=== PATIENT | male | born 1990 | race African-American/Black ===

== ENCOUNTER 2020-12-11 17:57 | Inpatient (IN) | payer MEDICARE, OTHER ==
[~2020-12-11] VITALS: Ht 177.8 cm; Wt 113.4 kg
[~2020-12-11 17:57] MED LIST: TRAM7.5P2
[2020-12-11 22:21] LABS: CLARITY URINE CLEAR (CLEAR); COLOR URINE YELLOW (YELLOW); KETONES URINE NEGATIVE (NEGATIVE); LEUKOCYTE ESTERASE URINE 1+ (NEGATIVE); NITRITE URINE NEGATIVE (NEGATIVE); OCCULT BLOOD URINE NEGATIVE (NEGATIVE); PH URINE 5.5 (4.5-8.0); PROTEIN URINE NEGATIVE (NEGATIVE); SPECIFIC GRAVITY URINE 1.028 (1.005-1.030)
[2020-12-11 22:50] LABS: BASOPHILS % 0.8 % (0.0-2.0); EOSINOPHILS % 1.6 % (0.0-5.0); HEMATOCRIT. 44.1 % (42.0-52.0); HEMOGLOBIN. 14.5 g/dL (14.0-18.0); LYMPHOCYTES % 33.8 % (20.0-50.0); MEAN CORPUSCULAR HEMOGLOBIN 24.9 pg (28.0-32.0); MEAN CORPUSCULAR VOLUME 75.8 fL (80.0-94.0); MEAN PLATELET VOLUME 7.4 fl (7.4-10.4); MONOCYTES % 7.5 % (2.0-8.0); NEUTROPHILS % 56.3 % (40.0-76.0); PLATELET 348 x1000/uL (130-400); RED BLOOD CELL COUNT 5.81 mill/uL (4.7-6.1)
[2020-12-11 22:58] LABS: PARTIAL THROMBOPLASTIN TIME 31.2 sec (23.4-31.0); PROTHROMBIN TIME 10.3 sec (9.6-11.0)
[2020-12-11 23:00] LABS: CHLORIDE 104 mEq/L (98-107)
[2020-12-11] MEDS ORDERED: HYDROCODONE/ACETAMINOPHEN 5/325MG TABLET PO ONE (23:30)
[2020-12-12] MEDS ORDERED: MAGNESIUM/ALUMINUM HYDROXIDE/SIMETHICONE 30ML UDC PO STA (00:25)
[2020-12-12] MEDS ORDERED: IOHEXOL-300 100 ML BOTTLE ONE (01:31)
[2020-12-12] MEDS ORDERED: MORPHINE SULFATE 2 MG/ML CPJ (NOT FOR IM USE) IV ONE (02:00)
[2020-12-12] MEDS ORDERED: SODIUM CHLORIDE 0.9% 1,000 ML IV ONE (02:00)
[2020-12-12] MEDS ORDERED: ONDANSETRON HCL 4MG/2ML INJ IV ONE (02:00)
[2020-12-12] MEDS ORDERED: METOCLOPRAMIDE HCL 10MG/2ML VIAL IV ONE (03:30)
[2020-12-12 12:00] VITALS: BP 104/52
[2020-12-12] MEDS ORDERED: CLONIDINE 0.1MG TABLET PO PRN (12:00)
[2020-12-12] MEDS ORDERED: DOCUSATE SODIUM 100MG CAPSULE PO PRN (12:00)
[2020-12-12] MEDS ORDERED: IPRATROPIUM/ALBUTEROL 0.5-3(2.5)MG/3ML NEB HHN PRN (12:00)
[2020-12-12] MEDS ORDERED: MAGNESIUM/ALUMINUM HYDROXIDE/SIMETHICONE 30ML UDC PO PRN (12:00)
[2020-12-12] MEDS ORDERED: ACETAMINOPHEN 325MG TABLET PO PRN (12:00)
[2020-12-12] MEDS ORDERED: ENOXAPARIN 40MG/0.4ML SYR SUBCUT SCH (12:00)
[2020-12-12] MEDS ORDERED: ONDANSETRON HCL 4MG/2ML INJ IV PRN (12:00)
[2020-12-12] MEDS: SODIUM CHLORIDE 0.9% 1,000 ML IV SCH ×2 (12:00→22:00)
[2020-12-12] MEDS: HYDROCODONE/ACETAMINOPHEN 5/325MG TABLET PO PRN ×2 (13:50→19:11)
[2020-12-12 16:00] VITALS: BP 119/66
[2020-12-12 18:38] VITALS: BP 125/71
[2020-12-12] MEDS: ENOXAPARIN 30MG/0.3ML SYR SUBCUT SCH (19:12)
[2020-12-12 20:00] VITALS: BP 136/86
[2020-12-12 20:54] VITALS: BP 163/89
[2020-12-13] VITALS: BP 102/54
[2020-12-13] MEDS: HYDROCODONE/ACETAMINOPHEN 5/325MG TABLET PO PRN (03:13)
[2020-12-13 04:00] VITALS: BP 98/51
[2020-12-13] MEDS: ENOXAPARIN 30MG/0.3ML SYR SUBCUT SCH ×2 (06:03→18:55)
[2020-12-13] MEDS: OMEPRAZOLE 20MG CAPSULE EXTENDED RELEASE PO SCH (06:22)
[2020-12-13 07:03] LABS: CHLORIDE 109 mEq/L (98-107)
[2020-12-13 07:05] LABS: PHOSPHORUS 3.9 mg/dL (2.5-4.9)
[2020-12-13 07:06] LABS: LDL CHOLESTEROL 74 mg/dL (5-100)
[2020-12-13 07:08] LABS: HDL CHOLESTEROL 33 mg/dL (40-59)
[2020-12-13 07:14] LABS: T4 FREE 1.04 ng/dL (0.76-1.46)
[2020-12-13 07:19] LABS: BASOPHILS % 1.3 % (0.0-2.0); EOSINOPHILS % 1.9 % (0.0-5.0); HEMATOCRIT. 42.5 % (42.0-52.0); HEMOGLOBIN. 13.9 g/dL (14.0-18.0); LYMPHOCYTES % 26.3 % (20.0-50.0); MEAN CORPUSCULAR HEMOGLOBIN 24.8 pg (28.0-32.0); MEAN CORPUSCULAR VOLUME 75.6 fL (80.0-94.0); MEAN PLATELET VOLUME 8.2 fl (7.4-10.4); MONOCYTES % 6.3 % (2.0-8.0); NEUTROPHILS % 64.2 % (40.0-76.0); PLATELET 314 x1000/uL (130-400); RED BLOOD CELL COUNT 5.62 mill/uL (4.7-6.1); RED CELL DISTRIBUTION WIDTH 14.9 % (11.6-14.6)
[2020-12-13 08:00] VITALS: BP 120/68
[2020-12-13] MEDS: SODIUM CHLORIDE 0.9% 1,000 ML IV SCH ×2 (08:00→19:06)
[2020-12-13 08:09] LABS: *AMPHETAMINES SCREEN URINE NEGATIVE (NEGATIVE); *BARBITURATES SCREEN URINE NEGATIVE (NEGATIVE); *BENZODIAZEPINES SCREEN URINE NEGATIVE (NEGATIVE); *COCAINE SCREEN URINE NEGATIVE (NEGATIVE); METHADONE URINE SCREEN NEGATIVE (NEGATIVE); OPIATES URINE SCREEN PRESUMTIVE POSITIVE (NEGATIVE)
[2020-12-13 08:10] LABS: CANNABINOID URINE SCREEN NEGATIVE (NEGATIVE); PHENCYCLIDINE URINE SCREEN NEGATIVE (NEGATIVE)
[2020-12-13 12:00] VITALS: BP 103/50
[2020-12-13 16:00] VITALS: BP 117/66
[2020-12-13 20:00] VITALS: BP 112/59
[2020-12-14] VITALS (7 sets, daily range): BP systolic 91–133; BP diastolic 48–78
[2020-12-14] MEDS: SODIUM CHLORIDE 0.9% 1,000 ML IV SCH ×2 (04:00→13:27)
[2020-12-14] MEDS: OMEPRAZOLE 20MG CAPSULE EXTENDED RELEASE PO SCH (06:20)
[2020-12-14] MEDS: ENOXAPARIN 30MG/0.3ML SYR SUBCUT SCH ×2 (06:20→18:44)
[2020-12-14] MEDS: HYDROCODONE/ACETAMINOPHEN 5/325MG TABLET PO PRN (07:10)
[2020-12-14 08:01] LABS: CHLORIDE 108 mEq/L (98-107)
[2020-12-14 08:12] LABS: BASOPHILS % 1.2 % (0.0-2.0); HEMATOCRIT. 42.9 % (42.0-52.0); HEMOGLOBIN. 13.9 g/dL (14.0-18.0); LYMPHOCYTES % 31.4 % (20.0-50.0); MEAN CORPUSCULAR HEMOGLOBIN 24.4 pg (28.0-32.0); MEAN PLATELET VOLUME 7.5 fl (7.4-10.4); MONOCYTES % 8.1 % (2.0-8.0); NEUTROPHILS % 57.3 % (40.0-76.0); PLATELET 333 x1000/uL (130-400); RED BLOOD CELL COUNT 5.72 mill/uL (4.7-6.1); RED CELL DISTRIBUTION WIDTH 15.1 % (11.6-14.6)
[2020-12-15] VITALS: BP 121/57
[2020-12-15] MEDS: SODIUM CHLORIDE 0.9% 1,000 ML IV SCH ×3 (01:46→23:20)
[2020-12-15] MEDS: ENOXAPARIN 30MG/0.3ML SYR SUBCUT SCH ×2 (06:00→18:00)
[2020-12-15 08:00] VITALS: BP 126/66
[2020-12-15] MEDS: OMEPRAZOLE 20MG CAPSULE EXTENDED RELEASE PO SCH (08:25)
[2020-12-15 12:00] VITALS: BP 112/62
[2020-12-15] MEDS ORDERED: KETOROLAC 15MG/ML VIAL IV SCH (13:00)
[2020-12-15] MEDS ORDERED: IPRATROPIUM/ALBUTEROL 0.5-3(2.5)MG/3ML NEB HHN SCH (13:00)
[2020-12-15] MEDS ORDERED: ALBUTEROL 6.7GM HFA INHALER ORI PRN (13:00)
[2020-12-15] MEDS ORDERED: IPRATROPIUM/ALBUTEROL 0.5-3(2.5)MG/3ML NEB HHN PRN (13:15)
[2020-12-15 15:38] LABS: BASOPHILS % 1.2 % (0.0-2.0); EOSINOPHILS % 1.2 % (0.0-5.0); HEMATOCRIT. 41.1 % (42.0-52.0); HEMOGLOBIN. 13.7 g/dL (14.0-18.0); LYMPHOCYTES % 28.1 % (20.0-50.0); MEAN CORPUSCULAR HEMOGLOBIN 24.9 pg (28.0-32.0); MEAN CORPUSCULAR VOLUME 74.9 fL (80.0-94.0); MEAN PLATELET VOLUME 7.6 fl (7.4-10.4); MONOCYTES % 7.5 % (2.0-8.0); PLATELET 303 x1000/uL (130-400); RED BLOOD CELL COUNT 5.49 mill/uL (4.7-6.1); RED CELL DISTRIBUTION WIDTH 14.7 % (11.6-14.6)
[2020-12-15 15:48] LABS: CHLORIDE 106 mEq/L (98-107)
[2020-12-15 16:00] VITALS: BP 120/67
[2020-12-15 20:00] VITALS: BP 123/73
[2020-12-15] MEDS: HYDROCODONE/ACETAMINOPHEN 5/325MG TABLET PO PRN (23:08)
[2020-12-16] VITALS: BP 131/85
[2020-12-16 04:00] VITALS: BP 97/45
[2020-12-16] MEDS: SODIUM CHLORIDE 0.9% 1,000 ML IV SCH (07:05)
[2020-12-16] MEDS: ENOXAPARIN 30MG/0.3ML SYR SUBCUT SCH (07:05)
[2020-12-16] MEDS: OMEPRAZOLE 20MG CAPSULE EXTENDED RELEASE PO SCH (07:05)
[2020-12-16 08:00] VITALS: BP 105/35
[2020-12-16] MEDS ORDERED: ALBU6.7H9 INH (10:29)
[2020-12-16 10:44] VITALS: BP 105/85
[2020-12-16 12:00] VITALS: BP 111/45
[2020-12-17 09:11] LABS: ABSOLUTE BASOPHILS 0.1 x10E3/uL (0.0-0.2); ABSOLUTE EOSINOPHILS 0.1 x10E3/uL (0.0-0.4); ABSOLUTE LYMPHOCYTES 1.7 x10E3/uL (0.7-3.1); ABSOLUTE MONOCYTES 0.4 x10E3/uL (0.1-0.9); ABSOLUTE NEUTROPHILS 3.4 x10E3/uL (1.4-7.0); BASOPHILS 1 % (Not Estab.); HEMATOCRIT 43.5 % (37.5-51.0); IMMATURE GRANULOCYTES 0 % (Not Estab.); LYMPHOCYTES 30 % (Not Estab.); MEAN CORPUSCULAR HEMOGLOBIN 24.5 pg (26.6-33.0); MEAN CORPUSCULAR HGB CONC. 32.2 g/dL (31.5-35.7); MEAN CORPUSCULAR VOLUME 76 fL (79-97); MONOCYTES 6 % (Not Estab.); NEUTROPHILS 62 % (Not Estab.); PLATELETS 326 x10E3/uL (150-450); RBC 5.71 x10E6/uL (4.14-5.80); WBC 5.5 x10E3/uL (3.4-10.8)
[2020-12-17 10:07] LABS: % CD 3 POS. LYMPHOCYTES 78.7 % (57.5-86.2); % CD 4 POS. LYMPHOCYTES 33.2 % (30.8-58.5); % CD 8 POS. LYMPH 43.6 % (12.0-35.5); ABSOLUTE CD 3 1338 /uL (622-2402); ABSOLUTE CD 4 HELPER 564 /uL (359-1519); ABSOLUTE CD 8 SUPPRESSOR 741 /uL (109-897); CD4/CD8 RATIO 0.76 (0.92-3.72)
[2020-12-18 17:11] LABS: *HIV-1 RNA BY PCR <20 copies/mL (.)
== END 2020-12-16 12:20 | disposition home or self-care (01) | DRG 392 ==
LOC: ER 17:57 → 6EST 12-12 03:28 → ENRESERV 12-12 08:18
PROVIDERS: ADMIT Internal Medicine; ATTEND Internal Medicine
DX: R10.9 Unspecified abdominal pain (principal); K92.2 Gastrointestinal hemorrhage, unspecified; I10 Essential (primary) hypertension; K40.20 Bilateral inguinal hernia, without obstruction or gangrene, not specified as recurrent; K42.9 Umbilical hernia without obstruction or gangrene; R56.9 Unspecified convulsions; R31.9 Hematuria, unspecified; Z88.5 Allergy status to narcotic agent; Z91.018 Allergy to other foods; Z91.09 Other allergy status, other than to drugs and biological substances
CPT/HCPCS: 36415; 71045; 72070; 72100; 74176; 74177; 76770; 76870; 80048; 80053; 80061; 80076; 80305; 81003; 83735; 84100; 84145; 84439; 84443; 84484; 84550; 85025; 86359; 86360; 86703; 87536; 87804; 93005; 93970; 93976; 94640; 97162; 99285; J1650; J1885; J2270; J2405; J2765; J7030; Q9967

== ENCOUNTER 2021-09-07 10:04 | Emergency (ER) | payer MEDICARE, OTHER ==
[~2021-09-07] VITALS: Ht 177.8 cm; Wt 93.0 kg
[~2021-09-07 10:04] MED LIST changes: +ALBU6.7H9 INH; -TRAM7.5P2
[2021-09-07] MEDS ORDERED: AZITHROMYCIN 500 MG TABLET PO ONE (10:30)
[2021-09-07] MEDS ORDERED: CEFTRIAXONE SODIUM 500 MG/VIAL IM ONE (10:30)
[2021-09-07] MEDS ORDERED: KETOROLAC 30MG/ML VIAL IV STA (10:30)
[2021-09-07 11:01] LABS: BASOPHILS % 1.1 % (0.0-2.0); EOSINOPHILS % 0.9 % (0.0-5.0); HEMATOCRIT. 45.4 % (42.0-52.0); HEMOGLOBIN. 14.9 g/dL (14.0-18.0); LYMPHOCYTES % 36.4 % (20.0-50.0); MEAN CORPUSCULAR HEMOGLOBIN 24.4 pg (28.0-32.0); MEAN CORPUSCULAR VOLUME 74.7 fL (80.0-94.0); MEAN PLATELET VOLUME 7.7 fl (7.4-10.4); MONOCYTES % 7.7 % (2.0-8.0); NEUTROPHILS % 53.9 % (40.0-76.0); PLATELET 266 x1000/uL (130-400); RED BLOOD CELL COUNT 6.08 mill/uL (4.7-6.1); RED CELL DISTRIBUTION WIDTH 15.3 % (11.6-14.6)
[2021-09-07 11:07] LABS: CHLORIDE 106 mEq/L (98-107)
[2021-09-07 11:14] LABS: CLARITY URINE CLEAR (CLEAR); COLOR URINE YELLOW (YELLOW); KETONES URINE TRACE (NEGATIVE); LEUKOCYTE ESTERASE URINE 1+ (NEGATIVE); NITRITE URINE NEGATIVE (NEGATIVE); OCCULT BLOOD URINE NEGATIVE (NEGATIVE); PROTEIN URINE NEGATIVE (NEGATIVE); SPECIFIC GRAVITY URINE 1.026 (1.005-1.030)
[2021-09-07] MEDS ORDERED: ACETAMINOPHEN 325MG TABLET PO ONE (12:30)
[2021-09-07] MEDS ORDERED: CIPR-263 MT (14:00)
[2021-09-07] MEDS ORDERED: IBUP-2028 MT (14:00)
[2021-09-07 15:42] VITALS: BP 130/81
[2021-09-09 08:09] LABS: NEISSERIA GONORRHOEAE NAA Negative (Negative)
== END 2021-09-07 15:42 | disposition home or self-care (01) ==
LOC: ER 10:04
DX: R07.89 Other chest pain (principal); N39.0 Urinary tract infection, site not specified
CPT/HCPCS: 36415; 71045; 80053; 81003; 83690; 84484; 85025; 87086; 87491; 87591; 93005; 96372; 96374; 99285; J0696; J1885

== ENCOUNTER 2024-09-07 10:25 | Emergency (ER) | payer OTHER ==
[~2024-09-07] VITALS: Ht 177.8 cm; Wt 120.0 kg
[~2024-09-07 10:25] MED LIST changes: +ALBU6.7H3 INH; -ALBU6.7H9 INH; +CIPR-263 MT; +IBUP-2028 MT
[2024-09-07 10:38] VITALS: O2SAT 99
[2024-09-07 10:40] VITALS: BP 152/97; PULSE 60; RESP 17; TEMP 36.7; O2SAT 99
[2024-09-07] MEDS ORDERED: CEPH500C2 MT (11:19)
[2024-09-07 12:00] LABS: CLARITY URINE CLEAR (CLEAR); COLOR URINE YELLOW (YELLOW); GLUCOSE URINE NEGATIVE (NEGATIVE); KETONES URINE NEGATIVE (NEGATIVE); LEUKOCYTE ESTERASE URINE TRACE (NEGATIVE); NITRITE URINE NEGATIVE (NEGATIVE); OCCULT BLOOD URINE NEGATIVE (NEGATIVE); PH URINE 6.0 (4.5-8.0); PROTEIN URINE NEGATIVE (NEGATIVE); SPECIFIC GRAVITY URINE 1.024 (1.005-1.030); UROBILINOGEN URINE 1.0 E.U./dL (0.2-1.0)
[2024-09-07] MEDS: DOXYCYCLINE HYCLATE 100MG CAPSULE PO ONE (12:29)
[2024-09-07] MEDS: CEFTRIAXONE SODIUM 500MG VIAL IM ONE (12:29)
[2024-09-07] MEDS: LIDOCAINE HCL 1% 20ML VIAL INFIL ONE (12:29)
[2024-09-07 13:24] LABS: SQUAMOUS EPITHELIAL CELL URINE FEW /lpf (RARE/1+)
[2024-09-07 13:25] LABS: MUCUS URINE 2+ /lpf (NONE/TRACE); WBC URINE 15-25 /hpf (0-2)
[2024-09-07 13:27] LABS: BACTERIA URINE TRACE; RBC URINE NONE SEEN /hpf (0-2)
[2024-09-10 04:07] LABS: CHLAMYDIA TRACHOMATIS NAA Negative (Negative); NEISSERIA GONORRHOEAE NAA Negative (Negative)
== END 2024-09-07 12:30 | disposition home or self-care (01) ==
LOC: ER 10:25
DX: R30.9 Painful micturition, unspecified (principal); Z11.3 Encounter for screening for infections with a predominantly sexual mode of transmission; Z88.5 Allergy status to narcotic agent; Z79.899 Other long term (current) drug therapy
CPT/HCPCS: 99283; 87491; 87591; 81003; 87086; 36415; 96372; J0696; J2003